=== PATIENT | male | born 1995 | race Caucasian/White ===

== ENCOUNTER 2017-11-15 19:37 | Emergency (ER) | payer OTHER ==
[~2017-11-15 19:37] MED LIST: AUGMENTIN875 MG PO; BUSPAR7.5 MG PO; CLINDAMYCIN HC300 MG PO; CLONIDINE HCL0.1 MG PO; DEPAKOTE ER (E500 M1 PO; FOCALIN XR40 MG PO; PEN-VEE K,VEET500 MG PO; ULTRAM50 MG PO; ZOFRAN ODT4 MG PO
[2017-11-15 19:58] LABS: BASOPHIL (%) 1.1 % (0-1); BASOPHIL COUNT 0.1 K/uL (0-0.1); EOSINOPHIL COUNT 0.2 K/uL (0-0.3); HEMATOCRIT 41.5 % (38.0-50.0); HEMOGLOBIN 14.9 G/DL (12.5-16.6); IMMATURE GRANULOCYTE (%) 0.3 % (0.0-0.7); LYMPHOCYTE COUNT 2.6 K/uL (1.0-2.8); MCH 30.5 PG (29.0-34.0); MCHC 35.9 G/DL (30.0-36.0); MONOCYTE COUNT 0.5 K/uL (0-0.8); NEUTROPHIL (%) 55.6 % (45-76); NEUTROPHIL COUNT 4.2 K/uL (1.8-6.4); PLATELET COUNT 218 K/uL (156-360); RBC DIS.WIDTH-CV 12.6 % (11.8-14.6); RBC DIS.WIDTH-SD 38.6 % (39-53); RED BLOOD COUNT 4.88 M/uL (4.00-5.50); WHITE BLOOD COUNT 7.5 K/uL (4.1-10.2)
[2017-11-15 20:07] LABS: AMYLASE 73 IU/L (1-118); CHLORIDE 105 mEq/L (99-109); POTASSIUM 3.8 mEq/L (3.7-5.4); SODIUM 142 mEq/L (136-147)
[2017-11-15 20:09] LABS: GLUCOSE 122 mg/dL (70-99)
[2017-11-15 20:12] LABS: SERUM ETHYL ALCOHOL < 10 mg/dL
[2017-11-15 20:13] LABS: CREATININE 0.9 mg/dL (0.6-1.3); GFR ESTIMATE (CALCULATED) > 59 mL/min/ (58.99-99999); UREA NITROGEN (BUN) 13 mg/dL (9-23)
[2017-11-15 20:16] LABS: LIPASE 14 U/L (1.0-51.0)
[2017-11-15] MEDS ORDERED: ROBAXIN750 MG PO (23:00)
[2017-11-15] MEDS ORDERED: MOTRIN600 MG PO (23:00)
== END 2017-11-15 23:51 | disposition home or self-care (01) ==
LOC: TRA 19:37
PROVIDERS: Emergency Medicine
PROC: 3E0234Z Introduction of Serum, Toxoid and Vaccine into Muscle, Percutaneous Approach (ICD-10-PCS; principal; 2017-11-15)
DX: S00.211A Abrasion of right eyelid and periocular area, initial encounter (principal); S16.1XXA Strain of muscle, fascia and tendon at neck level, initial encounter; S50.02XA Contusion of left elbow, initial encounter; S20.219A Contusion of unspecified front wall of thorax, initial encounter; S30.1XXA Contusion of abdominal wall, initial encounter; S20.319A Abrasion of unspecified front wall of thorax, initial encounter; S30.811A Abrasion of abdominal wall, initial encounter; S50.812A Abrasion of left forearm, initial encounter; V49.40XA Driver injured in collision with unspecified motor vehicles in traffic accident, initial encounter; Z23 Encounter for immunization; M25.512 Pain in left shoulder
CPT/HCPCS: 70450; 71045; 71260; 72125; 72170; 73080; 74177; 80048; 81003; 82150; 83690; 85025; 86850; 86900; 86901; 93005; 99281; 99285; G0480; J0690; J2405; J3010